=== PATIENT | female | born 1975 | race Caucasian/White ===

== ENCOUNTER 2025-03-11 07:15 | Day surgery (SDC) | payer OTHER ==
[~2025-03-11 07:15] MED LIST: Propofol 200 MG/20 ML SDV ONE; Ropivacaine 0.5% 5 MG/ML 30 ML SDV ONE; fentaNYL 100 MCG/2 ML SDV ONE
[2025-03-11] MEDS ORDERED: Lactated Ringers 1,000 ML IV ONE (07:16)
[2025-03-11] MEDS ORDERED: Propofol 200 MG/20 ML SDV ONE (08:24)
== END 2025-03-11 09:15 | disposition home or self-care (01) ==
LOC: JD.SDS 07:15
PROVIDERS: ATTEND Orthopaedic Surgery
DX: G56.12 Other lesions of median nerve, left upper limb (principal); I10 Essential (primary) hypertension; Z88.5 Allergy status to narcotic agent; Z91.030 Bee allergy status; Z79.899 Other long term (current) drug therapy
CPT/HCPCS: 64450; 64721; J0665; J2003; J2704; J2795; J3010; 01810; J7120